=== PATIENT | female | born 1995 | race Caucasian/White ===

== ENCOUNTER 2018-10-29 17:44 | Emergency (ER) | payer OTHER ==
--- NOTE | 2018-10-29 19:24 | EDPHY ---
H & P Stated Complaint: abd pain Time Seen by Provider: 10/29/18 19:23 HPI/ROS: HPI: This is a 22-year-old female who presents with Chief Complaint: Epigastric abdominal pain Location: Epigastric abdomen Quality: Pain Duration: 1 day Signs and Symptoms: no fever, no nausea, no vomiting, no hematemesis, no blood in stool, no abdominal bloating, no diarrhea, no back pain, no urinary symptoms , no vaginal bleeding/discharge, no indigestion, no chest pain, no shortness of breath Timing:Acute, rapidly worsening Severity: moderate Context: Patient presents from urgent care with 1 day history of rapidly worsening epigastric abdominal pain that is described as severe and constant in nature. She reports that over the last day the symptoms and pain have worsened. She denies nausea, vomiting, fever diarrhea, indigestion, abdominal bloating, early satiety. Patient reports that she does not regularly use NSAIDs. She is eating and drinking without difficulty prior to today. She went to the urgent care and had a urinalysis that was unremarkable and given a GI cocktail. She does admit to considerable amount of stress. Drinks maybe 1 beer every 2 weeks but very limited drinker. Does have cholesterol issues in her family. Modifying Factors: See above Comment: ROS: A comprehensive 10 system review of systems is otherwise negative aside from elements mentioned in the history of present illness. MEDICAL/SURGICAL/SOCIAL HISTORY: Medical history: Generally healthy. Takes control pills. Surgical history: Denies Social history: Never smoked. Family history noncontributory. CONSTITUTIONAL: Extremely well-appearing, nontoxic-appearing young adult white female, awake and alert, no obvious distress HEENT: Atraumatic and normocephalic, PERRL, EOMI. Nares patent; no rhinorrhea; no nasal mucosal edema. Tympanic membranes clear. Oropharynx clear, no exudate and moist pink mucosa. Airway patent. No lymphadenopathy. No meningismus. Cardiovascular: Normal S1/S2, regular rate, regular rhythm, without murmur rub or gallop. PULMONARY/CHEST: Symmetrical and nontender. Clear to auscultation bilaterally. Good air movement. No accessory muscle usage. ABDOMEN: Soft, nondistended, mild right upper quadrant tenderness, moderate epigastric tenderness,, no rebound, no guarding, no peritoneal signs, no masses or organomegaly. No CVAT. 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 EXTREMITIES: 2/2 pulses, strength 5/5, no deformities, no clubbing, no cyanosis or edema. NEUROLOGICAL: no focal neuro deficits. GCS 15. SKIN: Warm and dry, no erythema. no rash. Good capillary refill. Source: Patient Exam Limitations: No limitations - Personal History Current Tetanus/Diphtheria Vaccine: Yes Current Tetanus Diphtheria and Acellular Pertussis (TDAP): Yes - Medical/Surgical History Hx Asthma: No Hx Chronic Respiratory Disease: No Hx Diabetes: No Hx Cardiac Disease: No Hx Renal Disease: No Hx Cirrhosis: No Hx Alcoholism: No Hx HIV/AIDS: No Hx Splenectomy or Spleen Trauma: No - Social History Smoking Status: Never smoked Constitutional: Initial Vital Signs Temperature (C) 37.2 C 10/29/18 18:05 Heart Rate 78 10/29/18 18:05 Respiratory Rate 16 10/29/18 18:05 Blood Pressure 146/86 H 10/29/18 18:05 O2 Sat (%) 96 10/29/18 18:05 O2 Delivery Mode Room Air Allergies/Adverse Reactions: No Known Allergies Allergy (Unverified 10/29/18 18:05) Home Medications: Medication Instructions Recorded Bcp 10/29/18 Ondansetron Odt [Zofran Odt 4 mg 4 mg PO Q4 PRN #12 tab 10/29/18 (*)] Pantoprazole Sodium [Protonix 40mg 40 mg PO BID 7 Days tab 10/29/18 (*)] oxyCODONE/APAP 5/325 [Percocet 1 - 2 tab PO Q4H PRN #10 tab 10/29/18 5/325 (*)] Medical Decision Making - Diagnostics Imaging Results: Imaging Impressions Abdomen CT 10/29/18 19:31 Impression: 1. Contracted gallbladder, with no pericholecystic fluid or bile duct dilatation. The CT appearance of the pancreas is normal, however there is biochemical evidence of pancreatitis. 2. Mildly prominent right lower quadrant mesenteric lymph nodes. A low-grade adenitis is not excluded therefore. 3. Normal CT appearance of the appendix. 4. There is a 2.4 cm simple right ovarian cyst. Findings were discussed with Yuliana Mills PA-C at 21:21, on 10/29/2018. ED Course/Re-evaluation: Vital signs reviewed and stable upon arrival. No systemic signs. IV access, laboratory studies, CT abdomen and pelvis scan ordered Will not repeat urinalysis that was unremarkable at the urgent care several hours prior. Given 1 L normal saline, IV Protonix 40 mg, IV Pepcid 20 mg Suspect gastritis versus peptic ulcer disease versus GERD 2019: labs reviewed. No signs of leukocytosis/anemia/platelet dysfunction/LAWANDA/ elevated LFTs/electrolyte imbalance. Lipase 876 concerning for acute pancreatitis. BISAP=0 2133: Called by Dr. Queen who advised that CT abdomen and pelvis scan shows within normal limits pancreas, gallbladder is contracted but no common bile duct dilatation no stones, no sludge, no Trejo sign, appendix normal, right lower quadrant lymph nodes, 2.4 cm right ovarian cyst. 2134: Reassessed patient who reports that she is hungry in her last meal was at lunch. Discussed my recommendation for patient to be admitted for new acute pancreatitis with unknown etiology. At this point autoimmune versus hyper triglyceridemia is high on the differential. Patient is extremely concerned as she is in transition for her insurance and has financial strain. Discussed risk of sepsis and . Patient consult and family and boyfriend and despite their recommendations still wants to be discharged home. Patient is alert and oriented x4 and competent to make decisions on her own. 2158: Given a prepack for Zofran and Percocet as well as prescriptions for Zofran, Percocet, Protonix and clear liquid diet with gastroenterology follow- up in 1-2 days without fail. Patient was discharged home against medical advice. This patient was seen under the supervision of my secondary supervising physician. I evaluated care for this patient independently. Discussed this patient with Dr. South who did not see the patient. Differential Diagnosis: Abdominal pain including but not limited to appendicitis, cholecystitis, gastritis and urinary tract infection. - Data Points Laboratory Results: Laboratory Results 10/29/18 19:29 10/29/18 19:29 10/29/18 10/29/18 10/29/18 19:34 19:29 19:29 WBC RBC Hgb POC Hgb 15.0 gm/dL gm/dL (12.6-16.3) Hct POC Hct 44 % % (38-47) MCV MCH MCHC RDW Plt Count MPV Neut % (Auto) Lymph % (Auto) [place] % (Auto) Eos % (Auto) Baso % (Auto) Nucleat RBC Rel Count Absolute Neuts (auto) Absolute Lymphs (auto) Absolute Monos (auto) Absolute Eos (auto) Absolute Basos (auto) Absolute Nucleated RBC Immature Gran % Immature Gran # POC Sodium 141 mEq/L mEq/L (135-145) Sodium 136 mEq/L mEq/L (135-145) POC Potassium 3.4 mEq/L mEq/L (3.3-5.0) Potassium 3.7 mEq/L mEq/L (3.5-5.2) POC Chloride 102 mEq/L mEq/L (97-110) Chloride 101 mEq/L mEq/L (97-110) Carbon Dioxide 24 mEq/l mEq/l (22-31) POC Total CO2 25 mEq/L mEq/L (22-31) Anion Gap 11 mEq/L mEq/L (6-14) POC BUN 5 mg/dL L mg/dL (7-23) BUN 8 mg/dL mg/dL (7-23) Creatinine 0.7 mg/dL mg/dL (0.6-1.0) POC Creatinine 0.6 mg/dL mg/dL (0.6-1.0) Estimated GFR > 60 Glucose 88 mg/dL mg/dL (70-100) POC Glucose 87 mg/dL mg/dL (70-100) Calcium 9.8 mg/dL mg/dL (8.5-10.4) Total Bilirubin 0.4 mg/dL mg/dL (0.1-1.4) Conjugated Bilirubin 0.4 mg/dL mg/dL (0.0-0.5) Unconjugated Bilirubin 0.0 mg/dL mg/dL (0.0-1.1) AST 34 IU/L IU/L (14-46) ALT 36 IU/L IU/L (9-52) Alkaline Phosphatase 80 IU/L IU/L (38-126) Total Protein 8.4 g/dL H g/dL (6.3-8.2) Albumin 4.9 g/dL g/dL (3.5-5.0) Lipase 876 IU/L H IU/L (23-300) Beta HCG, Qual NEGATIVE 10/29/18 19:29 WBC 7.12 10^3/uL 10^3/uL (3.80-9.50) RBC 4.64 10^6/uL 10^6/uL (4.18-5.33) Hgb 14.0 g/dL g/dL (12.6-16.3) POC Hgb Hct 41.8 % % (38.0-47.0) POC Hct MCV 90.1 fL fL (81.5-99.8) MCH 30.2 pg pg (27.9-34.1) MCHC 33.5 g/dL g/dL (32.4-36.7) RDW 12.1 % % (11.5-15.2) Plt Count 277 10^3/uL 10^3/uL (150-400) MPV 10.4 fL fL (8.7-11.7) Neut % (Auto) 55.5 % % (39.3-74.2) Lymph % (Auto) 33.0 % % (15.0-45.0) [place] % (Auto) 10.3 % % (4.5-13.0) Eos % (Auto) 0.6 % % (0.6-7.6) Baso % (Auto) 0.6 % % (0.3-1.7) Nucleat RBC Rel Count 0.0 % % (0.0-0.2) Absolute Neuts (auto) 3.96 10^3/uL 10^3/uL (1.70-6.50) Absolute Lymphs (auto) 2.35 10^3/uL 10^3/uL (1.00-3.00) Absolute Monos (auto) 0.73 10^3/uL 10^3/uL (0.30-0.80) Absolute Eos (auto) 0.04 10^3/uL 10^3/uL (0.03-0.40) Absolute Basos (auto) 0.04 10^3/uL 10^3/uL (0.02-0.10) Absolute Nucleated RBC 0.00 10^3/uL 10^3/uL (0-0.01) Immature Gran % 0.0 % % (0.0-1.1) Immature Gran # 0.00 10^3/uL 10^3/uL (0.00-0.10) POC Sodium Sodium POC Potassium Potassium POC Chloride Chloride Carbon Dioxide POC Total CO2 Anion Gap POC BUN BUN Creatinine POC Creatinine Estimated GFR Glucose POC Glucose Calcium Total Bilirubin Conjugated Bilirubin Unconjugated Bilirubin AST ALT Alkaline Phosphatase Total Protein Albumin Lipase Beta HCG, Qual Medications Given: Pantoprazole Sodium (Protonix) 40 mg IVP ONCE ONE Stop: 10/30/18 19:32 Last Admin: 10/29/18 20:27 Dose: 40 mg Discontinued Medications Sodium Chloride (Ns) 1,000 mls @ 0 mls/hr IV EDNOW ONE; Wide Open PRN Reason: Protocol Stop: 10/29/18 19:31 Last Admin: 10/29/18 19:45 Dose: 1,000 mls Famotidine/Sodium Chloride (Pepcid 20 Mg (Premix)) 50 mls @ 200 mls/hr IV EDNOW ONE Stop: 10/29/18 19:44 Last Admin: 10/29/18 19:46 Dose: 50 mls Point of Care Test Results: Chemistry 10/29/18 19:34 POC Sodium 141 mEq/L mEq/L (135-145) POC Potassium 3.4 mEq/L mEq/L (3.3-5.0) POC Chloride 102 mEq/L mEq/L (97-110) POC Total CO2 25 mEq/L mEq/L (22-31) POC BUN 5 mg/dL L mg/dL (7-23) POC Creatinine 0.6 mg/dL mg/dL (0.6-1.0) POC Glucose 87 mg/dL mg/dL (70-100) ISTAT H&H 10/29/18 19:34 POC Hgb 15.0 gm/dL gm/dL (12.6-16.3) POC Hct 44 % % (38-47) Departure - Departure Disposition: Against Medical Advice Clinical Impression: Acute pancreatitis Qualifiers: Pancreatitis type: unspecified pancreatitis type Acute pancreatitis complication: unspecified Qualified Code(s): K85.90 - Acute pancreatitis without necrosis or infection, unspecified Condition: Good Instructions: Diet for Stomach Ulcers and Gastritis (ED), Gastroesophageal Reflux Disease (ED), Upper Endoscopy (DC), Pancreatitis (ED) Additional Instructions: Eat a clear liquid diet until seen by Gastroenterology for follow-up or pain- free. Consume a minimum of 8-10 glasses of water or electrolyte fluid replacement drinks that include Gatorade, Powerade, Pedialyte. Eat a gastritis/GERD/low-fat diet Take Protonix twice daily x7 days and then once daily. Take Zofran every 4-6 hours as needed for nausea, vomiting Take Percocet 1 tab every 4-6 hours as needed for severe/breakthrough pain. Follow-up with Gastroenterology in the next 1-2 days. Follow-Up: Please follow-up as noted above. Follow-up sooner if your condition worsens or if you develop any new problems. Call as soon as possible for an appointment. Be clear when you call for an appointment that this is an Emergency Department follow-up. Contact the Emergency Department if you have trouble arranging follow-up care. Our referrals are not based on your insurance network. When time allows, contact your insurance carrier to verify the referral physician is in your plan. If not, get a referral for an in-network internship. Referrals: Anam Doyle MD, FACG [Medical Doctor] - 1-2 days without fail Prescriptions: Ondansetron Odt [Zofran Odt 4 mg (*)] 4 mg PO Q4 PRN #12 tab PRN Reason: Nausea/Vomiting, Use 1st oxyCODONE/APAP 5/325 [Percocet 5/325 (*)] 1 - 2 tab PO Q4H PRN #10 tab PRN Reason: Pain, Severe Pantoprazole Sodium [Protonix 40mg (*)] 40 mg PO BID 7 Days tab
[2018-10-29] MEDS ORDERED: NS 1,000 ML IV ONE (19:30)
[2018-10-29] MEDS ORDERED: FAMOTIDINE 20 MG/NACL 50 ML IV ONE (19:30)
[2018-10-29 19:42] LABS: PLATELET COUNT 277 10^3/uL (150-400)
[2018-10-29] MEDS ORDERED: PANTOPRAZOLE SODIUM 40 MG VIAL ONE (19:42)
[2018-10-29] MEDS ORDERED: IOPAMIDOL (ISOVUE-300) 100 ML BTL ONE (19:46)
[2018-10-29] MEDS: PANTOPRAZOLE SODIUM 40 MG VIAL IVP ONE ×2 (19:46→20:27)
[2018-10-29] MEDS ORDERED: ONDANSETRON 4MG PREPACK#2 BTL TAKEHOME ONE (21:56)
[2018-10-29] MEDS ORDERED: OXYCODONE/APAP 5/325MG PREPACK#4 BTL TAKEHOME ONE (21:56)
[2018-10-29 22:14] VITALS: BP 134/98
== END 2018-10-29 22:13 | disposition left against medical advice (07) ==
DX: R10.13 Epigastric pain (principal); K85.90 Acute pancreatitis without necrosis or infection, unspecified; E86.9 Volume depletion, unspecified
CPT/HCPCS: 82435-PO; 82565-PO; 82947-PO; 84132-PO; 84295-PO; 84520-PO; 85014-ER; 96365; Q9967